=== PATIENT | female | born 1970 | race Caucasian/White ===

== ENCOUNTER 2019-10-14 06:35 | Outpatient (CLI) | payer OTHER, SELFPAY ==
[2019-10-14 07:50] LABS: Hematocrit 40.8 % (37.0-47.0); Hemoglobin 13.3 g/dL (12.0-15.0); Mean Corpuscular HGB Conc 32.6 g/dl (32-36); Mean Corpuscular Hemoglobin 29.2 pg (26-34); Mean Corpuscular Volume 89.5 fl (80-100); Mean Platelet Volume 11.1 fl (7.4-10.4); Platelet Count Result 227 k/mm3 (150-375); Red Blood Count 4.56 M/mm3 (4.2-5.4); Red Cell Distribution Width 12.8 % (11.5-14.5); White Blood Count 5.3 K/mm3 (4.5-10.0)
[2019-10-14 07:53] LABS: Hemoglobin A1C 5.6 % (<5.7)
[2019-10-14 07:59] LABS: Alanine Aminotransferase 38 U/L (4-35); Albumin Level 4.1 g/dL (3.5-5.1); Alkaline Phosphatase 47 U/L (38-126); Aspartate Amino Transferase 36 U/L (14-36); Bilirubin,Total 0.6 mg/dL (0.2-1.3); Blood Urea Nitrogen 17 mg/dL (7-17); Calcium 8.8 mg/dL (8.4-10.2); Carbon Dioxide 26 mmol/L (22-30); Chloride 103 mmol/L (98-107); Cholesterol 149 mg/dL (0-200); Estimated Glomerular Filt Rate > 60; Glucose 110 mg/dL (65-105); HDL Direct 69 mg/dL; Potassium 4.1 mmol/L (3.4-5.0); Sodium 138 mmol/L (137-145); Triglycerides 64 mg/dL (<150)
[2019-10-14 08:10] LABS: LDL Cholesterol Direct 67 mg/dL
[2019-10-14 08:32] LABS: Free T4 Free Thyroxine 0.85 ng/mL (0.78-2.19)
== END 2019-10-14 06:36 | disposition home or self-care (01) ==
PROVIDERS: PCP Internal Medicine; Visit Provider Internal Medicine
DX: E78.5 Hyperlipidemia, unspecified (principal); Z79.899 Other long term (current) drug therapy; R73.03 Prediabetes
CPT/HCPCS: 36415; 80053; 80061; 83036; 84439; 84443; 85027

== ENCOUNTER 2019-10-29 13:43 | Outpatient (CLI) | payer OTHER, SELFPAY ==
[2019-10-29 14:25] LABS: Influenza Control Positive
== END 2019-10-29 13:44 | disposition home or self-care (01) ==
PROVIDERS: PCP Internal Medicine; Visit Provider Internal Medicine
DX: R52 Pain, unspecified (principal)
CPT/HCPCS: 87804

== ENCOUNTER 2019-12-26 08:36 | Outpatient (CLI) | payer OTHER, SELFPAY ==
--- NOTE | ~2019-12-26 | XR_ITS ---
EXAMINATION: XR sacroiliac joints min 3V DATE: 12/26/2019 09:30 INDICATION: Back pain. TECHNIQUE: 3 views of the sacroiliac joints were obtained. COMPARISON: None. FINDINGS: Bone alignment is normal. No fracture. There is mild osteoarthritis of the sacroiliac joint s. No evidence of inflammatory arthropathy. IMPRESSION: 1. Mild osteoarthritis of the sacroiliac joints. Reviewed, dictated and finalized at location A.
--- NOTE | ~2019-12-26 | XR_ITS ---
EXAMINATION: XR lumbar spine 2-3V DATE: 12/26/2019 09:30 INDICATION: Back pain. TECHNIQUE: 2 views of lumbar spine were obtained. COMPARISON: Lumbar spine radiographs 07/25/2018 FINDINGS: Bone alignment is normal. Vertebral body heights and intervertebral disc heights are normal . There are endplate osteophytes at L3-L4. There is multilevel mild facet joint osteoarthritis. IMPRESSION: 1. Mild lumbar spondylosis. Reviewed, dictated and finalized at location A. IMPRESSION: 1. Mild lumbar spondylosis.
--- NOTE | ~2019-12-26 | XR_ITS ---
EXAMINATION: XR hip RT min 2V DATE: 12/26/2019 09:30 INDICATION: Right lower limb pain. TECHNIQUE: 2 views of right hip were obtained. COMPARISON: None. FINDINGS: Bone alignment is normal. No fracture. The right hip joint space is normal. IMPRESSION: 1. Normal right hip. Reviewed, dictated and finalized at location A. IMPRESSION: 1. Normal right hip.
--- NOTE | ~2019-12-26 | XR_ITS ---
EXAMINATION: XR sacrum coccyx min 2V DATE: 12/26/2019 09:30 INDICATION: Back pain. TECHNIQUE: 3 views of the sacrum and coccyx were obtained. COMPARISON: None. FINDINGS: Bone alignment is normal. L5 is a transitional segment. No fracture. There is mild osteoart hritis of the sacroiliac joints. IMPRESSION: 1. Mild osteoarthritis of the sacroiliac joints. Reviewed, dictated and finalized at location A.
== END 2019-12-26 08:37 | disposition home or self-care (01) ==
LOC: ANHIMG 08:41
PROVIDERS: PCP Internal Medicine; Visit Provider Internal Medicine
DX: M54.9 Dorsalgia, unspecified (principal); M47.898 Other spondylosis, sacral and sacrococcygeal region; M47.816 Spondylosis without myelopathy or radiculopathy, lumbar region
CPT/HCPCS: 72100; 72202; 72220; 73502

== ENCOUNTER 2020-01-02 08:24 | Outpatient (CLI) | payer OTHER, SELFPAY ==
--- NOTE | ~2020-01-02 | MR_ITS ---
EXAMINATION: MR lumbar spine wo con, MR sacroiliac jts wo con DATE: 01/02/2020 12:06 INDICATION: Dorsalgia and right hip pain TECHNIQUE: 1. Magnetic resonance imaging (MRI) of the lumbar spine was performed without intravenous contrast. S equences included sagittal T2-weighted FSE, sagittal T2-weighted FS FSE, sagittal T1-weighted FSE, an d axial T2-weighted FSE. 2. MRI of the sacral iliac joints was performed without intravenous contrast. Sequences included sagi ttal PD-weighted FS FSE, axial and coronal T1-weighted FSE and T2-weighted FS FSE and T2-weighted FSE . COMPARISON: None FINDINGS: Lumbar spine: Alignment is normal. Additional L5 segment which is sacralized on the right. Vertebral body heights a re normal. Marrow signal is normal. Mild disc desiccation and mild disc height loss at L3-L4 and L4-L 5. The conus medullaris terminates at T12. There is normal signal in the caudal spinal cord. Paravert ebral soft tissues are unremarkable. The following disc levels are specifically discussed: T12-L1: The disc does not extend beyond the endplate margin. There is mild bilateral facet joint oste oarthritis. There is no neural foraminal stenosis. There is no central canal stenosis. L1-L2: The disc does not extend beyond the endplate margin. There is mild bilateral facet joint osteo arthritis. There is no neural foraminal stenosis. There is no central canal stenosis. L2-L3: The disc does not extend beyond the endplate margin. There is mild bilateral facet joint osteo arthritis. There is no neural foraminal stenosis. There is no central canal stenosis. L3-L4: Disc is mildly bulging. There is mild right and mild to moderate left facet joint osteoarthrit is. There is mild bilateral neural foraminal stenosis. There is negligible central canal stenosis. L4-L5: Disc is bulging with superimposed right foraminal zone annular fissure. There is hypertrophy o f the ligamentum flavum. There is moderate bilateral facet joint osteoarthritis. There is mild bilat eral neural foraminal stenosis. There is mild central canal stenosis. L5-S1: The disc does not extend beyond the endplate margin. There is mild bilateral facet joint osteo arthritis. There is no neural foraminal stenosis. There is no central canal stenosis. Sacrum/sacroiliac joints: Alignment is normal. There is mild edema along the surgical site of the pseudoarticulation between th e partially sacralized right transverse process of L5 and the sacrum. Small T1 and T2 hyperintense he mangioma at the left sacral ala at the level of S1. Mild left and minimal right sacroiliac osteoarthr itis. Small region of mild subarticular edema at the sacral side of the anterior margin of the left s acroiliac joint. No erosions, joint effusion or increased signal along the joint line to suggest an i nflammatory sacroiliitis. Small bone island at the left innominate bone at the inferior margin of the posterior iliac spine. Bone marrow signal is otherwise normal. No fracture. 5.0 cm homogeneously T2 hyperintense left adnexal cyst with single curvilinear nearly indiscernible internal septation. No ev ident soft tissue component to suggest neoplasm. 1.2 cm right adnexal cyst. Bladder and anteverted ut erus are normal. No pathologically enlarged pelvic or inguinal lymphadenopathy. Small amount of likel y physiologic free fluid in the cul-de-sac. IMPRESSION: 1. Mild lumbar spondylosis with developmental transitional L5 segment which is partially sacralized o n the right. 2. Mild left and minimal right sacroiliac osteoarthritis. No findings to suggest an inflammatory sacr oiliitis. Reviewed, dictated and finalized at location A.
== END 2020-01-02 08:25 | disposition home or self-care (01) ==
LOC: ANHIMG 08:26
PROVIDERS: PCP Internal Medicine; Visit Provider Internal Medicine
DX: M25.551 Pain in right hip (principal); M54.9 Dorsalgia, unspecified; M47.816 Spondylosis without myelopathy or radiculopathy, lumbar region; M47.898 Other spondylosis, sacral and sacrococcygeal region
CPT/HCPCS: 72148; 72197

== ENCOUNTER 2020-01-14 13:02 | Outpatient (CLI) | payer OTHER, SELFPAY ==
--- NOTE | ~2020-01-14 | MR_ITS ---
EXAMINATION: MR hip RT wo/w con DATE: 01/14/2020 14:27 INDICATION: Right hip pain TECHNIQUE: Magnetic resonance imaging (MRI) of the right hip was performed without and with 14 mL Mu ltihance intravenous contrast. Sequences included full-field axial PD-weighted FS FSE and T1-weighted FSE, coronal of the pelvis with PD-weighted FS FSE, small field of view of the right hip with axial PD-weighted FS FSE, axial T1-weighted FS FSE, sagittal PD-weighted FS FSE and coronal PD weighted FS FSE. Additional radial T1-weighted FGR oriented orthogonal to the acetabular rim were obtained for e valuation of the labrum. Postcontrast axial and coronal T1-weighted FS FSE images were also obtained. COMPARISON: None FINDINGS: Bones/labrum/cartilage: Alignment is normal. No fracture, avascular necrosis or pathologic marrow replacing process. Mild os teoarthritis at the right hip with mild posterior predominant nonuniform joint space narrowing. There is a tear of the anterosuperior right acetabular labrum. Fluid: Symmetric physiologic amount of fluid within both hip joints. Soft tissues: Normal and symmetric muscle bulk and signal in the pelvis and visualized proximal thighs. The iliopso as, gluteal and proximal hamstring tendons are normal. 5.6 cm left adnexal cyst. Limited evaluation o f visceral organs of the pelvis is otherwise unremarkable. No pathologically enlarged pelvic/inguina l lymphadenopathy. No abnormally enhancing lesions identified. IMPRESSION: 1. Mild right hip osteoarthritis with anterosuperior labral tear. 2. 5.6 cm left adnexal cyst. Reviewed, dictated and finalized at location A.
[2020-01-14 13:27] LABS: Estimated Glomerular Filt Rate > 60
== END 2020-01-14 13:03 | disposition home or self-care (01) ==
PROVIDERS: PCP Internal Medicine; Visit Provider Internal Medicine
DX: M25.551 Pain in right hip (principal); M16.11 Unilateral primary osteoarthritis, right hip; S73.191A Other sprain of right hip, initial encounter; K66.8 Other specified disorders of peritoneum
CPT/HCPCS: 36415; 73723; A9577

== ENCOUNTER 2020-01-17 12:26 | Outpatient (CLI) | payer OTHER, SELFPAY ==
--- NOTE | ~2020-01-17 | XR_ITS ---
EXAMINATION: XR lg joint inject/asp w image DATE: 01/17/2020 13:27 INDICATION: Right hip pain TECHNIQUE: A time-out was performed to verify the patient's name, date of , and procedure to b e performed. The procedure including the risks, benefits, and alternatives was discussed with the pat ient. Risks discussed included bleeding and infection. The patient understood the risks and agreed to proceed. The skin overlying the right hip joint was prepped and draped in usual sterile fashion. A nesthetic was administered with 1% lidocaine subcutaneously. A 22 G needle was advanced under fluoro scopic guidance into the joint. Injection of 0.6 mL of Omnipaque 240 confirmed intra-articular posit ion of the needle. Subsequently, injectate consisting of 6 mL of a 4:2 mixture of 1% lidocaine: 10 m g/mL Kenalog for a total dosage of 20 mg Kenalog was instilled. Washout of contrast was seen confirmi ng intra-articular administration. The needle was removed and the entry site was cleaned and dressed. There were no immediate complications. Fluoroscopy exposure time was 0.1 minutes. The total number of images was 1. FINDINGS: Real-time fluoroscopy demonstrates the needle in the right hip joint. Patient's pain prior to procedure:/. Patient's pain following the procedure: 2/10. IMPRESSION: 1. Right hip injection of local anesthetic and steroid with decrease in the patient's presenting pain . Reviewed, dictated and finalized at location A. IMPRESSION: 1. Right hip injection of local anesthetic and steroid with decrease in the pat ient's presenting pain.
== END 2020-01-17 12:27 | disposition home or self-care (01) ==
PROVIDERS: PCP Internal Medicine; Visit Provider Orthopaedic Surgery
DX: M25.551 Pain in right hip (principal)
CPT/HCPCS: 20610; 77002; Q9966

== ENCOUNTER 2020-01-31 12:32 | Outpatient (CLI) | payer OTHER, SELFPAY ==
[2020-01-31 13:44] LABS: Blood Urea Nitrogen 17 mg/dL (7-17); Carbon Dioxide 24 mmol/L (22-30); Chloride 105 mmol/L (98-107); Estimated Glomerular Filt Rate > 60; Glucose 106 mg/dL (65-105); Potassium 3.9 mmol/L (3.4-5.0); Sodium 138 mmol/L (137-145)
[2020-01-31 16:08] LABS: Folic Acid 10.7 ng/mL (2.76->20)
[2020-02-04 11:11] LABS: Vitamin B6 13.4 ng/mL (2.1-21.7)
[2020-02-06 10:17] LABS: Vitamin B1 12 nmol/L (8-30)
== END 2020-01-31 12:33 | disposition home or self-care (01) ==
PROVIDERS: PCP Internal Medicine; Visit Provider Internal Medicine
DX: K14.6 Glossodynia (principal); R73.03 Prediabetes; R53.83 Other fatigue
CPT/HCPCS: 36415; 80048; 82607; 82746; 83036; 84207; 84425; 84443

== ENCOUNTER 2020-03-05 15:25 | Outpatient (CLI) | payer OTHER, SELFPAY ==
--- NOTE | ~2020-03-05 | US_ITS ---
EXAMINATION: US pelvic complete w TV DATE: 03/05/2020 16:21 INDICATION: Left adnexal cyst Comparison:No prior studies for comparison. TECHNIQUE: Multiple transabdominal and endovaginal sonographic images of the pelvis performed. FINDINGS: The uterus measures 9.3 x 5.4 x 5.5 cm. There is a hypoechoic vascular structure in the radha metrium adjacent to the endometrium measuring 2.4 x 2 x 1.8 cm, compatible with uterine fibroid. The endometrial complex measures 7 mm. The right ovary not visualized. Left ovary contains a 4.9 x 4.2 x 3.6 cm simple cyst. There is no reema e fluid in the pelvis. There are no abnormal masses seen on either side. IMPRESSION: 1. 4.9 cm simple cyst of the left ovary. 2: Hypoechoic vascular mass of the uterine myometrium measuring up to 2.4 cm, compatible with uterine fibroid. Reviewed, dictated and finalized at location A. IMPRESSION: 1. 4.9 cm simple cyst of the left ovary. 2: Hypoechoic vascular mass of the uterine myometrium measuring up to 2.4 cm, c ompatible with uterine fibroid.
== END 2020-03-05 15:26 | disposition home or self-care (01) ==
PROVIDERS: PCP Internal Medicine; Visit Provider Obstetrics & Gynecology
DX: D35.02 Benign neoplasm of left adrenal gland (principal)
CPT/HCPCS: 76830; 76856

== ENCOUNTER 2020-05-21 12:17 | Outpatient (CLI) | payer OTHER, SELFPAY ==
--- NOTE | ~2020-05-21 | CT_ITS ---
EXAMINATION: CT abdomen pelvis w con DATE: 05/21/2020 12:48 INDICATION: Diverticulitis of intestine. TECHNIQUE: Computed tomography (CT) of the abdomen and pelvis was performed with 100 mL Omnipaque 350 intravenous contrast. Automated exposure control and iterative reconstruction technique were employe d. The dose-length product was 418.75 mGy-cm. COMPARISON: Pelvis ultrasound 03/15/2020, right hip MRI 01/14/2020 FINDINGS: The visualized portions of the lung bases demonstrate minimal atelectasis. No pleural effus ion. The heart size is normal. No pericardial effusion. There are bilateral breast implants. There is a 6 mm cyst in the liver. There is a 3.9 cm mass in left hepatic lobe with interrupted peripheral pu ddling of contrast, consistent with a hemangioma. The gallbladder, spleen, pancreas, adrenal glands, and kidneys are normal. There are no dilated loops of bowel. The appendix is normal. There is a small umbilical hernia containing fat. There is a 4.8 cm cyst in left ovary. There are no pathologically e nlarged lymph nodes. There is no free intraperitoneal fluid. There is a 2.2 cm submucosal fibroid in the uterus. There is mild lumbar spondylosis. IMPRESSION: 1. Stable 4.8 cm cyst in left ovary, likely benign. 2. Uterine fibroid. Reviewed, dictated and finalized at location A.
== END 2020-05-21 12:18 | disposition home or self-care (01) ==
LOC: ANHIMG 12:18
PROVIDERS: PCP Internal Medicine; Visit Provider Internal Medicine
DX: K57.92 Diverticulitis of intestine, part unspecified, without perforation or abscess without bleeding (principal); R10.9 Unspecified abdominal pain; N83.202 Unspecified ovarian cyst, left side; D25.9 Leiomyoma of uterus, unspecified
CPT/HCPCS: 74177; Q9967

== ENCOUNTER 2020-07-10 07:23 | Outpatient (CLI) | payer OTHER, SELFPAY ==
[2020-07-10 07:59] LABS: Basophils Percent Auto 0.5 % (0.2-1.2); Eosinophils Absolute Auto 0.2 K/mm3 (0-0.3); Eosinophils Percent Auto 2.4 % (0-4.4); Hematocrit 41.4 % (37.0-47.0); Hemoglobin 13.8 g/dL (12.0-15.0); Immature Granulocyte Absolute 0.01 K/mm3 (0.00-0.031); Immature Granulocyte Percent A 0.2 % (0-0.5); Lymphocytes Absolute Auto 1.53 K/mm3 (0.9-3.2); Lymphocytes Percent Auto 24.9 % (18.3-44.2); Mean Corpuscular HGB Conc 33.3 g/dl (32-36); Mean Corpuscular Hemoglobin 29.2 pg (26-34); Mean Corpuscular Volume 87.5 fl (80-100); Mean Platelet Volume 10.3 fl (7.4-10.4); Monocytes Absolute Auto 0.4 K/mm3 (0.1-0.6); Monocytes Percent Auto 6.7 % (2.6-8.5); Neutrophils Percent Auto 65.3 % (45.5-73.1); Platelet Count Result 231 k/mm3 (150-375); Red Blood Count 4.73 M/mm3 (4.2-5.4); Red Cell Distribution Width 12.2 % (11.5-14.5); White Blood Count 6.1 K/mm3 (4.5-10.0)
[2020-07-10 08:10] LABS: Hemoglobin A1C 5.4 % (<5.7)
[2020-07-10 08:15] LABS: Alanine Aminotransferase 78 U/L (4-35); Albumin Level 4.4 g/dL (3.5-5.1); Alkaline Phosphatase 110 U/L (38-126); Anion Gap 7 mmol/L (8-16); Aspartate Amino Transferase 79 U/L (14-36); Bilirubin,Total 0.5 mg/dL (0.2-1.3); Blood Urea Nitrogen 17 mg/dL (7-17); Calcium 8.9 mg/dL (8.4-10.2); Carbon Dioxide 30 mmol/L (22-30); Chloride 103 mmol/L (98-107); Cholesterol 161 mg/dL (0-200); Estimated Glomerular Filt Rate > 60; Glucose 90 mg/dL (65-105); HDL Direct 48 mg/dL; Potassium 4.1 mmol/L (3.4-5.0); Sodium 140 mmol/L (137-145); Triglycerides 134 mg/dL (<150)
[2020-07-10 08:26] LABS: LDL Cholesterol Direct 71 mg/dL
[2020-07-10 08:48] LABS: Free T4 Free Thyroxine 0.98 ng/mL (0.78-2.19); Vitamin D 25 Hydroxy 39.1 ng/mL
== END 2020-07-10 07:24 | disposition home or self-care (01) ==
LOC: ANHLAB 07:27
PROVIDERS: PCP Internal Medicine; Visit Provider Internal Medicine
DX: E78.5 Hyperlipidemia, unspecified (principal); E55.9 Vitamin D deficiency, unspecified; Z79.899 Other long term (current) drug therapy
CPT/HCPCS: 36415; 80053; 80061; 82306; 83036; 84439; 84443; 85025

== ENCOUNTER 2020-09-23 08:27 | Outpatient (CLI) | payer OTHER, SELFPAY ==
--- NOTE | ~2020-09-23 | MM_ITS ---
EXAMINATION: MM scrn herlinda implant BI w nakul HISTORY: Screening mammogram TECHNIQUE: Craniocaudal and mediolateral oblique 3-D tomosynthesis images with implant displacement a nd synthetic 2-D images were generated. Craniocaudal and mediolateral oblique views of the breasts wi thout implant displacement were obtained using full field digital mammography. CAD analysis was submi tted and interpreted. COMPARISON: Comparison to multiple prior studies sequentially, with oldest reviewed study dated 09/16. BREAST PARENCHYMAL COMPOSITION: The breasts are extremely dense, which lowers the sensitivity of mamm ography. FINDINGS: There are subpectoral breast implants. There is no evidence of suspicious mass, calcificati on, or architectural distortion to suggest malignancy in either breast. There has been no suspicious interval change. IMPRESSION: 1. No mammographic evidence of malignancy. 2. Recommend routine screening mammography in one year. BI-RADS Category 1: Negative Reviewed, dictated and finalized at location A. 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
== END 2020-09-23 08:28 | disposition home or self-care (01) ==
LOC: ANHIMG 08:28
PROVIDERS: Family Provider Internal Medicine; PCP Internal Medicine; Visit Provider Internal Medicine
DX: Z12.31 Encounter for screening mammogram for malignant neoplasm of breast (principal)
CPT/HCPCS: 77063; 77067

== ENCOUNTER 2021-02-03 06:45 | Outpatient (CLI) | payer OTHER, SELFPAY ==
[2021-02-03 07:52] LABS: Alanine Aminotransferase 27 U/L (4-35); Albumin Level 4.4 g/dL (3.5-5.1); Alkaline Phosphatase 60 U/L (38-126); Anion Gap 10 mmol/L (8-16); Aspartate Amino Transferase 34 U/L (14-36); Bilirubin,Total 0.4 mg/dL (0.2-1.3); Blood Urea Nitrogen 18 mg/dL (7-17); Calcium 9.5 mg/dL (8.4-10.2); Carbon Dioxide 24 mmol/L (22-30); Chloride 105 mmol/L (98-107); Cholesterol 273 mg/dL (0-200); Estimated Glomerular Filt Rate > 60; Glucose 99 mg/dL (65-105); HDL Direct 87 mg/dL; Potassium 4.4 mmol/L (3.4-5.0); Sodium 139 mmol/L (137-145); Triglycerides 70 mg/dL (<150)
[2021-02-03 08:00] LABS: Basophils Absolute Auto 0.1 K/mm3 (0.0-0.1); Basophils Percent Auto 1.4 % (0.2-1.2); Eosinophils Absolute Auto 0.3 K/mm3 (0-0.3); Hematocrit 41.8 % (37.0-47.0); Hemoglobin 13.9 g/dL (12.0-15.0); Immature Granulocyte Absolute 0.01 K/mm3 (0.00-0.031); Immature Granulocyte Percent A 0.2 % (0-0.5); Lymphocytes Absolute Auto 1.44 K/mm3 (0.9-3.2); Lymphocytes Percent Auto 27.8 % (18.3-44.2); Mean Corpuscular HGB Conc 33.3 g/dl (32-36); Mean Corpuscular Hemoglobin 29.5 pg (26-34); Mean Corpuscular Volume 88.7 fl (80-100); Mean Platelet Volume 10.4 fl (7.4-10.4); Monocytes Absolute Auto 0.4 K/mm3 (0.1-0.6); Monocytes Percent Auto 7.9 % (2.6-8.5); Neutrophils Percent Auto 57.7 % (45.5-73.1); Platelet Count Result 247 k/mm3 (150-375); Red Blood Count 4.71 M/mm3 (4.2-5.4); Red Cell Distribution Width 12.7 % (11.5-14.5); White Blood Count 5.2 K/mm3 (4.5-10.0)
[2021-02-03 08:02] LABS: LDL Cholesterol Direct 126 mg/dL
[2021-02-03 08:10] LABS: Hemoglobin A1C 5.4 % (<5.7)
[2021-02-03 09:01] LABS: Free T4 Free Thyroxine 0.87 ng/mL (0.78-2.19)
[2021-02-07 11:19] LABS: Vitamin D 1,25 (OH)2 Total 34 pg/mL (18-72); Vitamin D2 1,25 (OH)2 <8 pg/mL; Vitamin D3 1,25 (OH)2 34 pg/mL
== END 2021-02-03 06:46 | disposition home or self-care (01) ==
PROVIDERS: PCP Internal Medicine; Visit Provider Internal Medicine
DX: E55.9 Vitamin D deficiency, unspecified (principal); E78.5 Hyperlipidemia, unspecified; Z79.899 Other long term (current) drug therapy
CPT/HCPCS: 36415; 80053; 80061; 82652; 83036; 84439; 84443; 85025

== ENCOUNTER 2021-02-24 12:08 | Outpatient (CLI) | payer OTHER, SELFPAY ==
[2021-02-24 13:03] LABS: Hematocrit 45.5 % (37.0-47.0); Mean Corpuscular Hemoglobin 29.6 pg (26-34); Mean Corpuscular Volume 89.7 fl (80-100); Mean Platelet Volume 10.1 fl (7.4-10.4); Platelet Count Result 201 k/mm3 (150-375); Red Blood Count 5.07 M/mm3 (4.2-5.4); Red Cell Distribution Width 12.8 % (11.5-14.5); White Blood Count 7.6 K/mm3 (4.5-10.0)
[2021-02-24 13:17] LABS: Monoscreen Negative (Negative)
[2021-02-24 13:18] LABS: Negative Monotest Control Negative (Negative); Positive Monotest Control Positive (Positive)
[2021-02-24 13:25] LABS: Influenza Control Positive
[2021-02-24 13:35] LABS: Alanine Aminotransferase 31 U/L (4-35); Albumin Level 4.5 g/dL (3.5-5.1); Alkaline Phosphatase 58 U/L (38-126); Anion Gap 11 mmol/L (8-16); Aspartate Amino Transferase 36 U/L (14-36); Bilirubin,Total 0.7 mg/dL (0.2-1.3); Blood Urea Nitrogen 13 mg/dL (7-17); Carbon Dioxide 27 mmol/L (22-30); Chloride 102 mmol/L (98-107); Estimated Glomerular Filt Rate > 60; Glucose 95 mg/dL (65-105); Potassium 3.7 mmol/L (3.4-5.0); Sodium 140 mmol/L (137-145)
[2021-02-24 13:38] LABS: Add Urine Microscopic? YES; Appearance Urine Clear (Clear); Bilirubin Urine Negative (Negative); Blood Urine 1+ (Negative); Color Urine Amber (Yellow); Glucose Urine UA Negative (Negative); Ketones Urine Trace mg/dL (Negative); Leukocyte Esterase Ur Negative LEU/UL (Negative); Mucus Urine Heavy /lpf; Nitrate Urine Negative (Negative); Protein Urine 1+ mg/dL (Negative); Squamous Epithelial Cell Urine Rare /hpf (Few); WBC Urine 0-3 /hpf
[2021-02-24 13:50] LABS: Band Neutrophils Percent 23 % (0-6); Lymphocytes Absolute Manual 0.83 K/mm3 (1.1-4.5); Metamyelocytes Percent 2 %; Monocytes Absolute Manual 0.15 K/mm3 (0.1-0.90); Monocytes Percent Manual 2 % (3-9); Neutrophils Absolute Manual 6.46 K/mm3 (1.7-7.2); Neutrophils Percent Manual 62 % (46-73); Platelet Estimate Adequate (Adequate); Total Cells Counted 100
[2021-02-24 13:51] LABS: Erythrocyte Sedimentation Rate 18 mm/hr (0-20)
[2021-02-24 14:36] LABS: CRP 15.3 mg/dL (<1.0)
== END 2021-02-24 12:09 | disposition home or self-care (01) ==
PROVIDERS: PCP Internal Medicine; Visit Provider Internal Medicine
DX: R50.9 Fever, unspecified (principal); R11.0 Nausea; R52 Pain, unspecified
CPT/HCPCS: 80053; 81001; 85025; 85652; 86140; 86308; 87040; 87804

== ENCOUNTER 2021-09-01 11:08 | Outpatient (CLI) | payer OTHER, SELFPAY ==
[2021-09-01 11:58] LABS: Basophils Absolute Auto 0.1 K/mm3 (0.0-0.1); Basophils Percent Auto 1.3 % (0.2-1.2); Eosinophils Absolute Auto 0.2 K/mm3 (0-0.3); Eosinophils Percent Auto 3.8 % (0-4.4); Hematocrit 40.6 % (37.0-47.0); Hemoglobin 13.7 g/dL (12.0-15.0); Immature Granulocyte Absolute 0.02 K/mm3 (0.00-0.031); Immature Granulocyte Percent A 0.4 % (0-0.5); Lymphocytes Absolute Auto 1.81 K/mm3 (0.9-3.2); Lymphocytes Percent Auto 32.5 % (18.3-44.2); Mean Corpuscular HGB Conc 33.7 g/dl (32-36); Mean Corpuscular Hemoglobin 29.7 pg (26-34); Mean Corpuscular Volume 88.1 fl (80-100); Mean Platelet Volume 10.7 fl (7.4-10.4); Monocytes Absolute Auto 0.4 K/mm3 (0.1-0.6); Monocytes Percent Auto 7.2 % (2.6-8.5); Neutrophils Absolute Auto 3.1 K/mm3 (1.3-6.7); Neutrophils Percent Auto 54.8 % (45.5-73.1); Platelet Count Result 314 k/mm3 (150-375); Red Blood Count 4.61 M/mm3 (4.2-5.4); Red Cell Distribution Width 12.5 % (11.5-14.5); White Blood Count 5.6 K/mm3 (4.5-10.0)
[2021-09-01 12:17] LABS: Alanine Aminotransferase 23 U/L (4-35); Albumin Level 4.8 g/dL (3.5-5.1); Alkaline Phosphatase 54 U/L (38-126); Anion Gap 10 mmol/L (8-16); Aspartate Amino Transferase 32 U/L (14-36); Bilirubin,Total 0.6 mg/dL (0.2-1.3); Blood Urea Nitrogen 21 mg/dL (7-17); Calcium 9.5 mg/dL (8.4-10.2); Carbon Dioxide 28 mmol/L (22-30); Chloride 99 mmol/L (98-107); Cholesterol 187 mg/dL (0-200); Estimated Glomerular Filt Rate > 60; Glucose 88 mg/dL (65-110); HDL Direct 104 mg/dL; Potassium 4.3 mmol/L (3.4-5.0); Sodium 137 mmol/L (137-145); Triglycerides 54 mg/dL (<150)
[2021-09-01 12:23] LABS: Add Urine Microscopic? NO; Appearance Urine Clear (Clear); Bilirubin Urine Negative (Negative); Blood Urine Negative (Negative); Color Urine Yellow (Yellow); Glucose Urine UA Negative (Negative); Ketones Urine Negative (Negative); Leukocyte Esterase Ur Negative LEU/UL (Negative); Nitrate Urine Negative (Negative); Protein Urine Negative (Negative); Specific Grav Ur 1.012 (1.001-1.035); Urobilinogen Urine Negative mg/dL (<2.0)
[2021-09-01 12:27] LABS: Hemoglobin A1C 5.5 % (<5.7)
[2021-09-01 12:28] LABS: LDL Cholesterol Direct 62 mg/dL
[2021-09-01 12:44] LABS: Free T4 Free Thyroxine 1.09 ng/mL (0.78-2.19); Vitamin D 25 Hydroxy 36.8 ng/mL
[2021-09-04 09:28] LABS: Apolipoprotein B 62 mg/dL (<90)
== END 2021-09-01 11:09 | disposition home or self-care (01) ==
LOC: ANHLAB 11:10
PROVIDERS: PCP Internal Medicine; Visit Provider Internal Medicine
DX: E78.5 Hyperlipidemia, unspecified (principal); E55.9 Vitamin D deficiency, unspecified; Z79.899 Other long term (current) drug therapy
CPT/HCPCS: 36415; 80053; 80061; 81003; 82172; 82306; 83036; 83525; 84439; 84443; 85025

== ENCOUNTER 2021-11-30 07:12 | Outpatient (CLI) | payer OTHER, SELFPAY | END 2021-11-30 07:13 | disposition home or self-care (01) | PROVIDERS: PCP Internal Medicine; Visit Provider Internal Medicine | DX: I49.8 Other specified cardiac arrhythmias (principal); Z51.81 Encounter for therapeutic drug level monitoring; Z79.899 Other long term (current) drug therapy | CPT/HCPCS: 36415; 83735 ==

== ENCOUNTER 2021-12-08 10:19 | Outpatient (CLI) | payer OTHER, SELFPAY ==
--- NOTE | 2021-12-08 | EST_ITS ---
Patient Info Name: Gloria Meyers Age: 51 years : 1970 Gender: Female Ht: 69 in Wt: 160 lbs BSA: 1.88 m2 HR: 83 bpm BP: 124 / 80 mmHg Exam Date: 12/08/2021 10:47 AM Exam Location: [facility] Patient Status: Outpatient Admit Date: 12/08/2021 Staff Ordering Physician: Fuentes Bridges MD Build Technician: Anyi Daugherty RDCS Attending Provider: Fuentes Bridges MD Exercise Technologist: Shi Avitia CT Exercise Physician: Fuentes Bridges MD Exam Type: CA stress echo Study Info Indications R00.2 - Palpitations Treadmill exercise stress echocardiogram is performed. Summary 1. Negative stress echocardiogram for ischemia by wall motion analysis. 2. Stress echocardiogram is normal. 3. Non diagnostic ST/T wave changes with exercise. 4. Good exercise capacity for age. 5. No exercise-induced chest pain. Stress Echo Findings Left Ventricle Normal left venticular systolic function with no regional wall motion abnormalities noted at rest. Overall global left ventricular systolic function Improved post stress. No regional wall motion abnormalities noted post stress. Normal augmentation of all wall segments without evidence of ischemia with stress. Protocol: Robbie Stress ECG Details Stage: REST Duration (min): 0 min : 54 sec Speed (mph): 0.0 Grade (%): 0 HR (bpm): 85 SBP (mmHg): 124 DBP (mmHg): 80 METS: --- Stage: REST Duration (min): 19 min : 48 sec Speed (mph): 0.0 Grade (%): 0 HR (bpm): 83 SBP (mmHg): 124 DBP (mmHg): 80 METS: --- Stage: STAGE 1 Duration (min): 1 min : 0 sec Speed (mph): 1.7 Grade (%): 10 HR (bpm): 100 SBP (mmHg): 124 DBP (mmHg): 80 METS: --- Stage: STAGE 1 Duration (min): 2 min : 0 sec Speed (mph): 1.7 Grade (%): 10 HR (bpm): 102 SBP (mmHg): 124 DBP (mmHg): 80 METS: --- Stage: STAGE 1 Duration (min): 3 min : 0 sec Speed (mph): 1.7 Grade (%): 10 HR (bpm): 103 SBP (mmHg): 124 DBP (mmHg): 80 METS: --- Stage: STAGE 2 Duration (min): 1 min : 0 sec Speed (mph): 2.5 Grade (%): 12 HR (bpm): 110 SBP (mmHg): 155 DBP (mmHg): 78 METS: --- Stage: STAGE 2 Duration (min): 2 min : 0 sec Speed (mph): 2.5 Grade (%): 12 HR (bpm): 112 SBP (mmHg): 152 DBP (mmHg): 75 METS: --- Stage: STAGE 2 Duration (min): 3 min : 0 sec Speed (mph): 2.5 Grade (%): 12 HR (bpm): 117 SBP (mmHg): 152 DBP (mmHg): 75 METS: --- Stage: STAGE 3 Duration (min): 1 min : 0 sec Speed (mph): 3.4 Grade (%): 14 HR (bpm): 130 SBP (mmHg): 172 DBP (mmHg): 80 METS: --- Stage: STAGE 3 Duration (min): 2 min : 0 sec Speed (mph): 3.4 Grade (%): 14 HR (bpm): --- SBP (mmHg): 172 DBP (mmHg): 80 METS: --- Stage: STAGE 3 Duration (min): 3 min : 0 sec Speed (mph): 3.4 Grade (%): 14 HR (bpm): --- SBP (mmHg): 166 D
== END 2021-12-08 10:20 | disposition home or self-care (01) ==
LOC: ANHCARD 10:20
PROVIDERS: PCP Internal Medicine; Visit Provider Internal Medicine Cardiovascular Disease
DX: R00.2 Palpitations (principal); Z82.49 Family history of ischemic heart disease and other diseases of the circulatory system; R73.03 Prediabetes; I48.0 Paroxysmal atrial fibrillation
CPT/HCPCS: 93351

== ENCOUNTER 2022-01-19 08:08 | Outpatient (CLI) | payer OTHER, SELFPAY ==
--- NOTE | ~2022-01-19 | MM_ITS ---
EXAMINATION: MM scrn herlinda implant BI w nakul HISTORY: Screening mammogram TECHNIQUE: Craniocaudal and mediolateral oblique 3-D tomosynthesis images with implant displacement a nd synthetic 2-D images were generated. Craniocaudal and mediolateral oblique views of the breasts wi thout implant displacement were obtained using full field digital mammography. CAD analysis was submi tted and interpreted. COMPARISON: 09/23/2020, 04/10/2019, 05/24/2017 bilateral implant screening mammogram examinations BREAST PARENCHYMAL COMPOSITION: The breasts are heterogeneously dense, which may obscure small masses . FINDINGS: There is no evidence of suspicious mass, calcification, or architectural distortion to sugg est malignancy in either breast. There has been no suspicious interval change. IMPRESSION: 1. No mammographic evidence of malignancy. 2. Recommend routine screening mammography in one year. BI-RADS Category 1: Negative Reviewed, dictated and finalized at location A.
== END 2022-01-19 08:09 | disposition home or self-care (01) ==
LOC: ANHIMG 08:10
PROVIDERS: PCP Internal Medicine; Visit Provider Internal Medicine
DX: Z12.31 Encounter for screening mammogram for malignant neoplasm of breast (principal)
CPT/HCPCS: 77063; 77067

== ENCOUNTER 2022-03-04 07:23 | Outpatient (CLI) | payer OTHER, SELFPAY ==
[2022-03-04 08:01] LABS: Hemoglobin A1C 5.4 % (<5.7)
[2022-03-04 08:07] LABS: Alanine Aminotransferase 21 U/L (6-35); Albumin Level 4.5 g/dL (3.5-5.1); Alkaline Phosphatase 54 U/L (38-126); Anion Gap 5 mmol/L (8-16); Aspartate Amino Transferase 34 U/L (14-36); Bilirubin,Total 0.6 mg/dL (0.2-1.3); Blood Urea Nitrogen 18 mg/dL (7-17); Calcium 8.8 mg/dL (8.4-10.2); Carbon Dioxide 29 mmol/L (22-30); Chloride 105 mmol/L (98-107); Cholesterol 210 mg/dL (0-200); Estimated Glomerular Filt Rate > 60; Glucose 93 mg/dL (65-110); HDL Direct 86 mg/dL; Potassium 4.3 mmol/L (3.4-5.0); Sodium 139 mmol/L (137-145); Triglycerides 71 mg/dL (<150)
[2022-03-04 08:22] LABS: LDL Cholesterol Direct 86 mg/dL
[2022-03-04 15:08] LABS: Vitamin D 25 Hydroxy 41.7 ng/mL
== END 2022-03-04 07:24 | disposition home or self-care (01) ==
LOC: ANHLAB 07:24
PROVIDERS: PCP Internal Medicine; Visit Provider Internal Medicine
DX: E78.5 Hyperlipidemia, unspecified (principal); Z79.899 Other long term (current) drug therapy; E55.9 Vitamin D deficiency, unspecified
CPT/HCPCS: 36415; 80053; 80061; 82306; 83036; 84439; 84443

== ENCOUNTER 2022-10-17 06:54 | Outpatient (CLI) | payer OTHER, SELFPAY ==
[2022-10-17 07:24] LABS: Basophils Absolute Auto 0.1 K/mm3 (0.0-0.1); Basophils Percent Auto 1.5 % (0.2-1.2); Eosinophils Absolute Auto 0.5 K/mm3 (0-0.3); Eosinophils Percent Auto 9.5 % (0-4.4); Hematocrit 38.4 % (37.0-47.0); Hemoglobin 12.9 g/dL (12.0-15.0); Immature Granulocyte Absolute 0.02 K/mm3 (0.00-0.031); Immature Granulocyte Percent A 0.4 % (0-0.5); Lymphocytes Absolute Auto 1.67 K/mm3 (0.9-3.2); Lymphocytes Percent Auto 30.6 % (18.3-44.2); Mean Corpuscular HGB Conc 33.6 g/dl (32-36); Mean Corpuscular Hemoglobin 28.9 pg (26-34); Mean Corpuscular Volume 85.9 fl (80-100); Mean Platelet Volume 10.3 fl (7.4-10.4); Monocytes Absolute Auto 0.4 K/mm3 (0.1-0.6); Monocytes Percent Auto 6.4 % (2.6-8.5); Neutrophils Absolute Auto 2.8 K/mm3 (1.3-6.7); Neutrophils Percent Auto 51.6 % (45.5-73.1); Platelet Count Result 299 k/mm3 (150-375); Red Blood Count 4.47 M/mm3 (4.2-5.4); Red Cell Distribution Width 12.9 % (11.5-14.5); White Blood Count 5.5 K/mm3 (4.5-10.0)
[2022-10-17 07:36] LABS: Alanine Aminotransferase 18 U/L (6-35); Albumin Level 4.4 g/dL (3.5-5.1); Alkaline Phosphatase 48 U/L (38-126); Anion Gap 4 mmol/L (8-16); Aspartate Amino Transferase 30 U/L (14-36); Bilirubin,Total 0.5 mg/dL (0.2-1.3); Blood Urea Nitrogen 21 mg/dL (7-17); CRP < 0.5 mg/dL (<1.0); Calcium 8.6 mg/dL (8.4-10.2); Carbon Dioxide 28 mmol/L (22-30); Chloride 103 mmol/L (98-107); Cholesterol 147 mg/dL (0-200); Creatine Kinase 132 U/L (30-135); Estimated Glomerular Filt Rate > 60; Glucose 92 mg/dL (65-110); HDL Direct 80 mg/dL; Potassium 4.3 mmol/L (3.4-5.0); Sodium 135 mmol/L (137-145); Triglycerides 55 mg/dL (<150)
[2022-10-17 07:42] LABS: Hemoglobin A1C 5.3 % (<5.7)
[2022-10-17 07:45] LABS: LDL Cholesterol Direct 42 mg/dL
[2022-10-17 07:56] LABS: Vitamin D 25 Hydroxy 33.5 ng/mL
[2022-10-17 07:57] LABS: Erythrocyte Sedimentation Rate 11 mm/hr (0-20)
[2022-10-20 11:43] LABS: Aldolase 5.2 U/L (<=8.1)
== END 2022-10-17 06:55 | disposition home or self-care (01) ==
PROVIDERS: PCP Internal Medicine; Visit Provider Internal Medicine
DX: E55.9 Vitamin D deficiency, unspecified (principal); Z79.899 Other long term (current) drug therapy; E78.5 Hyperlipidemia, unspecified; M54.9 Dorsalgia, unspecified; I49.8 Other specified cardiac arrhythmias; R53.83 Other fatigue
CPT/HCPCS: 36415; 80053; 80061; 82085; 82306; 82550; 83036; 84439; 84443; 85025; 85652; 86140

== ENCOUNTER 2023-07-03 15:23 | Outpatient (CLI) | payer OTHER, SELFPAY ==
[2023-07-03 17:03] LABS: Basophils Absolute Auto 0.1 K/mm3 (0.0-0.1); Eosinophils Absolute Auto 0.3 K/mm3 (0-0.3); Eosinophils Percent Auto 5.4 % (0-4.4); Hematocrit 38.1 % (37.0-47.0); Hemoglobin 12.2 g/dL (12.0-15.0); Immature Granulocyte Absolute 0.02 K/mm3 (0.00-0.031); Immature Granulocyte Percent A 0.3 % (0-0.5); Lymphocytes Absolute Auto 1.85 K/mm3 (0.9-3.2); Lymphocytes Percent Auto 29.4 % (18.3-44.2); Mean Corpuscular Hemoglobin 28.4 pg (26-34); Mean Corpuscular Volume 88.8 fl (80-100); Mean Platelet Volume 10.7 fl (7.4-10.4); Monocytes Absolute Auto 0.5 K/mm3 (0.1-0.6); Monocytes Percent Auto 7.5 % (2.6-8.5); Neutrophils Absolute Auto 3.6 K/mm3 (1.3-6.7); Neutrophils Percent Auto 56.4 % (45.5-73.1); Platelet Count Result 276 k/mm3 (150-375); Red Blood Count 4.29 M/mm3 (4.2-5.4); Red Cell Distribution Width 13.1 % (11.5-14.5); White Blood Count 6.3 K/mm3 (4.5-10.0)
[2023-07-03 17:13] LABS: Alanine Aminotransferase 17 U/L (6-35); Albumin Level 4.6 g/dL (3.5-5.1); Alkaline Phosphatase 63 U/L (38-126); Anion Gap 5 mmol/L (8-16); Aspartate Amino Transferase 34 U/L (14-36); Bilirubin,Total 0.4 mg/dL (0.2-1.3); Blood Urea Nitrogen 20 mg/dL (7-17); Calcium 9.1 mg/dL (8.4-10.2); Carbon Dioxide 32 mmol/L (22-30); Chloride 103 mmol/L (98-107); Cholesterol 170 mg/dL (0-200); Estimated Glomerular Filt Rate > 60; Glucose 84 mg/dL (65-110); HDL Direct 102 mg/dL; Potassium 3.7 mmol/L (3.4-5.0); Sodium 140 mmol/L (137-145); Triglycerides 82 mg/dL (<150)
[2023-07-03 17:26] LABS: LDL Cholesterol Direct 53 mg/dL
[2023-07-03 19:10] LABS: Free T4 Free Thyroxine 1.25 ng/mL (0.78-2.19); Vitamin D 25 Hydroxy 36.7 ng/mL
[2023-07-03 21:50] LABS: Hemoglobin A1C 5.3 % (<5.7)
== END 2023-07-03 15:24 | disposition home or self-care (01) ==
LOC: ANHLAB 15:25
PROVIDERS: PCP Internal Medicine; Visit Provider Internal Medicine
DX: I49.8 Other specified cardiac arrhythmias (principal); E78.5 Hyperlipidemia, unspecified; E55.9 Vitamin D deficiency, unspecified; Z79.899 Other long term (current) drug therapy; Z83.3 Family history of diabetes mellitus
CPT/HCPCS: 36415; 80053; 80061; 82306; 83036; 84439; 84443; 85025

== ENCOUNTER 2023-10-12 14:19 | Outpatient (CLI) | payer OTHER, SELFPAY ==
--- NOTE | ~2023-10-12 | MM_ITS ---
EXAMINATION: MM scrn herlinda implant BI w nakul HISTORY: Screening mammogram TECHNIQUE: Craniocaudal and mediolateral oblique 3-D tomosynthesis images with implant displacement a nd synthetic 2-D images were generated. Craniocaudal and mediolateral oblique views of the breasts wi thout implant displacement were obtained using full field digital mammography. CAD analysis was submi tted and interpreted. COMPARISON: 01/19/2022, 09/23/2020, 04/10/2019 BREAST PARENCHYMAL COMPOSITION: The breasts are heterogeneously dense, which may obscure small masses . FINDINGS: There is no evidence of suspicious mass, calcification, or architectural distortion to sugg est malignancy in either breast. There has been no suspicious interval change. IMPRESSION: 1. No mammographic evidence of malignancy. 2. Recommend routine screening mammography in one year. BI-RADS Category 1: Negative Reviewed, dictated and finalized at location A. 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
== END 2023-10-12 14:20 | disposition home or self-care (01) ==
PROVIDERS: PCP Internal Medicine; Visit Provider Obstetrics & Gynecology
DX: Z12.31 Encounter for screening mammogram for malignant neoplasm of breast (principal)
CPT/HCPCS: 77063; 77067

== ENCOUNTER 2024-02-07 06:57 | Outpatient (CLI) | payer OTHER, SELFPAY ==
[2024-02-07 07:46] LABS: Basophils Absolute Auto 0.1 K/mm3 (0.0-0.1); Basophils Percent Auto 1.5 % (0.2-1.2); Eosinophils Absolute Auto 0.2 K/mm3 (0-0.3); Eosinophils Percent Auto 5.1 % (0-4.4); Hematocrit 40.7 % (37.0-47.0); Hemoglobin 13.5 g/dL (12.0-15.0); Immature Granulocyte Absolute 0.01 K/mm3 (0.00-0.031); Immature Granulocyte Percent A 0.2 % (0-0.5); Lymphocytes Absolute Auto 1.57 K/mm3 (0.9-3.2); Lymphocytes Percent Auto 33.6 % (18.3-44.2); Mean Corpuscular HGB Conc 33.2 g/dl (32-36); Mean Corpuscular Volume 84.4 fl (80-100); Mean Platelet Volume 10.3 fl (7.4-10.4); Monocytes Absolute Auto 0.4 K/mm3 (0.1-0.6); Monocytes Percent Auto 8.8 % (2.6-8.5); Neutrophils Absolute Auto 2.4 K/mm3 (1.3-6.7); Neutrophils Percent Auto 50.8 % (45.5-73.1); Platelet Count Result 327 k/mm3 (150-375); Red Blood Count 4.82 M/mm3 (4.2-5.4); Red Cell Distribution Width 13.2 % (11.5-14.5); White Blood Count 4.7 K/mm3 (4.5-10.0)
[2024-02-07 07:59] LABS: Alanine Aminotransferase 17 U/L (6-35); Albumin Level 4.9 g/dL (3.5-5.1); Alkaline Phosphatase 57 U/L (38-126); Anion Gap 9 mmol/L (4-12); Aspartate Amino Transferase 34 U/L (14-36); Bilirubin,Total 0.6 mg/dL (0.2-1.3); Blood Urea Nitrogen 14 mg/dL (7-17); Calcium 9.6 mg/dL (8.4-10.2); Carbon Dioxide 29 mmol/L (22-30); Chloride 101 mmol/L (98-107); Cholesterol 171 mg/dL (0-200); Estimated Glomerular Filt Rate > 60; Glucose 86 mg/dL (65-110); HDL Direct 89 mg/dL; Potassium 4.2 mmol/L (3.4-5.0); Sodium 139 mmol/L (137-145); Triglycerides 75 mg/dL (<150)
[2024-02-07 08:10] LABS: LDL Cholesterol Direct 57 mg/dL
[2024-02-07 08:20] LABS: Free T4 Free Thyroxine 1.19 ng/mL (0.78-2.19); Vitamin D 25 Hydroxy 45.6 ng/mL
[2024-02-07 09:30] LABS: Hemoglobin A1C 5.4 % (<5.7)
== END 2024-02-07 06:58 | disposition home or self-care (01) ==
PROVIDERS: PCP Internal Medicine; Visit Provider Internal Medicine
DX: R73.03 Prediabetes (principal); Z79.899 Other long term (current) drug therapy; E78.5 Hyperlipidemia, unspecified
CPT/HCPCS: 36415; 80053; 80061; 82306; 83036; 84439; 84443; 85025

== ENCOUNTER 2024-06-04 14:38 | Outpatient (NON) | payer OTHER, SELFPAY ==
[2024-06-04 09:41] LABS: IFOB Positive Control Positive; Immunochemical Fecal Occult Bl Positive (N)
[2024-06-04 11:32] LABS: Toxigenic C. Diff NEGATIVE (NEGATIVE)
[2024-06-09 20:39] LABS: Fecal Fat, Ql Normal (Normal)
[2024-06-11 12:28] LABS: Trichrome Ova and Parasites STATUS: FINAL
== END 2024-06-04 14:39 | disposition home or self-care (01) ==
PROVIDERS: PCP Internal Medicine; Visit Provider Internal Medicine
DX: R19.7 Diarrhea, unspecified (principal)
CPT/HCPCS: 82274; 82705; 87045; 87177; 87209; 87427; 87449; 87493; 89055

== ENCOUNTER 2024-06-14 10:15 | Outpatient (CLI) | payer OTHER, SELFPAY ==
[2024-06-14 11:02] LABS: Basophils Absolute Auto 0.1 K/mm3 (0.0-0.1); Eosinophils Absolute Auto 0.2 K/mm3 (0-0.3); Eosinophils Percent Auto 3.4 % (0-4.4); Hematocrit 41.6 % (37.0-47.0); Hemoglobin 13.4 g/dL (12.0-15.0); Immature Granulocyte Absolute 0.01 K/mm3 (0.00-0.031); Immature Granulocyte Percent A 0.2 % (0-0.5); Lymphocytes Absolute Auto 1.82 K/mm3 (0.9-3.2); Lymphocytes Percent Auto 31.1 % (18.3-44.2); Mean Corpuscular HGB Conc 32.2 g/dl (32-36); Mean Corpuscular Hemoglobin 28.1 pg (26-34); Mean Corpuscular Volume 87.2 fl (80-100); Mean Platelet Volume 10.4 fl (7.4-10.4); Monocytes Absolute Auto 0.6 K/mm3 (0.1-0.6); Monocytes Percent Auto 9.6 % (2.6-8.5); Neutrophils Absolute Auto 3.2 K/mm3 (1.3-6.7); Neutrophils Percent Auto 54.7 % (45.5-73.1); Platelet Count Result 359 k/mm3 (150-375); Red Blood Count 4.77 M/mm3 (4.2-5.4); Red Cell Distribution Width 12.8 % (11.5-14.5); White Blood Count 5.9 K/mm3 (4.5-10.0)
[2024-06-14 11:16] LABS: Hemoglobin A1C 5.8 % (<5.7)
[2024-06-14 11:18] LABS: Alanine Aminotransferase 33 U/L (6-35); Alkaline Phosphatase 52 U/L (38-126); Amylase 104 U/L (30-110); Anion Gap 7 mmol/L (4-12); Aspartate Amino Transferase 44 U/L (14-36); Bilirubin,Total 0.6 mg/dL (0.2-1.3); Blood Urea Nitrogen 16 mg/dL (7-17); CRP < 0.5 mg/dL (<1.0); Calcium 9.8 mg/dL (8.4-10.2); Carbon Dioxide 33 mmol/L (22-30); Chloride 100 mmol/L (98-107); Cholesterol 180 mg/dL (0-200); Estimated Glomerular Filt Rate > 60; Glucose 82 mg/dL (65-110); HDL Direct 76 mg/dL; Lipase 164 U/L (23-300); Potassium 3.8 mmol/L (3.4-5.0); Sodium 140 mmol/L (137-145); Triglycerides 108 mg/dL (<150)
[2024-06-14 11:27] LABS: LDL Cholesterol Direct 66 mg/dL
[2024-06-14 12:01] LABS: Erythrocyte Sedimentation Rate 12 mm/hr (0-20)
[2024-06-20 19:53] LABS: Calprotectin, Stool 651 mcg/g
== END 2024-06-14 10:16 | disposition home or self-care (01) ==
LOC: ANHLAB 10:18
PROVIDERS: PCP Internal Medicine; Referring Provider Internal Medicine; Visit Provider Nurse Practitioner Family
DX: Z01.812 Encounter for preprocedural laboratory examination (principal); R10.9 Unspecified abdominal pain; R14.0 Abdominal distension (gaseous); R19.7 Diarrhea, unspecified; E78.49 Other hyperlipidemia; Z83.3 Family history of diabetes mellitus; Z82.49 Family history of ischemic heart disease and other diseases of the circulatory system; Z79.899 Other long term (current) drug therapy
CPT/HCPCS: 36415; 80053; 80061; 82150; 82653; 83036; 83690; 83993; 85025; 85652; 86140

== ENCOUNTER 2024-07-12 05:59 | Day surgery (SDC) | payer OTHER, SELFPAY ==
[2024-07-03 14:16] VITALS: BMI 24.3
--- NOTE | 2024-07-09 09:58 | PC.NURSE ---
Spoke with WILLIAM regarding medication XARELTO. Pt. verbalizes understanding that the last dose of XARELTO is to be taken on 07/08/2024 and the Endoscopist will instruct them when to restart after the procedure.
--- NOTE | 2024-07-12 11:16 | P.HP_ITS ---
H&P: [facility] History of Present Illness Date/Time: 07/12/24 11:16 Chief Complaint: Diarrhea, elevated stool calprotectin Narrative: the patient started 1 month ago with acute diarrhea that gradually resolved although not to normality. She was also complaining of crampy abdominal pain relieved with defecation. More importantly, her most recent stool sample was positive for occult blood and a calprotectin level of 651. here for EGD and colonoscopy. 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 Paroxysmal A-fib Pre-operative clearance RUQ abdominal pain Screening mammogram, encounter for URI, acute Vitamin D deficiency Surgical History Surgical History History of breast augmentation Social History Social History Smoking status: Never smoker Second hand tobacco smoke exposure: No Alcohol intake: current Drinks per week: 3 Alcohol use details: DRINKS Substance use: never Substance use type: does not use Do You Feel Safe in your Home?: Yes Lack of Transportation: No Lack of Food: Never True Current Housing: I Have Housing Concerned About Future Housing: No Difficulty Paying Gas/Electric Bills: No Difficulty Paying for Meds: No Currently Unemployed: No Living arrangements: with family Occupation/Education: occupation Gender identity (if verbalized by the patient): Female Spiritual care concerns: No Meds Home Medications and Allergies Home Medications Medication Instructions Recorded Confirmed Type cholecalciferol (vitamin D3) 50 50 mcg PO DAILY 08/22/23 07/03/24 History mcg (2,000 unit) capsule Xarelto 20 mg tablet (rivaroxaban) See Rx Instructions .Route 03/06/24 07/03/24 Rx .COMPLEX #90 tabs Nexlizet 180 mg-10 mg tablet 1 tablet PO DAILY #90 tabs 04/02/24 07/03/24 Rx (bempedoic acid-ezetimibe) hydroxyzine HCl 25 mg tablet See Rx Instructions PO .at hs PRN 06/06/24 07/03/24 Rx sleep #90 tabs clonazepam 1 mg tablet 1 mg PO TID PRN anxiety #270 tabs 07/10/24 Rx Allergies Allergy/AdvReac Type Severity Reaction Status Date / Time No Known Allergies Allergy Verified 07/03/24 14:18 Exam Const: General: cooperative and healthy appearing Resp: Effort & Inspection: normal respiratory effort and able to speak in complete sentences Auscultation: clear to auscultation bilaterally Cardio: Rate: regular rate Rhythm: regular rhythm GI: Inspection: normal to inspection GI Palp: No No hepatosplenomegaly present Auscultation: normal bowel sounds Rectal Exam: deferred Skin: General skin exam: normal color Psych: Appearance: grossly normal Mental Status: mental status grossly normal Assessment and Plan Assessment and plan (1) Elevated fecal calprotectin: Code(s): R19.5 - Other fecal abnormalities Status: Acute Assessment and Plan: 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 Will perform colonoscopy and the EGD will be for screening purposes. (2) Diarrhea: Qualifiers: Diarrhea type: presumed infectious Qualified Code(s): R19.7 - Diarrhea, unspecified Code(s): R19.7 - Diarrhea, unspecified Status: Acute
[2024-07-12 11:44] VITALS: BP 148/76; PULSE 59; RESP 18; TEMP 36.1; O2SAT 100; BMI 25.1
[2024-07-12] MEDS: LACTATED RINGERS 1,000 ML 150 ML IV CONT (11:48)
--- NOTE | 2024-07-12 11:58 | P.PNAN_ITS ---
Anes - Initial Pre Proc Eval Procedure: Operation Date: 07/12/24 13:00 Proposed Procedures p Esophagogastroduodenoscopy & Colonoscopy - Tye Garay MD Date/Time: 07/12/24 11:58 Surgeon: Tye Garay MD Pre Op Diagnosis: diarrhea, fecal abnormalities Patient Data Age: 54 Gender: F Height: 1.73 m Weight: 74.9 kg Last Vital Signs Temp 97 F L 07/12/24 11:44 Pulse 59 L 07/12/24 11:44 Resp 18 07/12/24 11:44 BP 148/76 H 07/12/24 11:44 Pulse Ox 100 07/12/24 11:44 O2 Del Method Room Air 07/12/24 11:44 Allergies Allergy/AdvReac Type Severity Reaction Status Date / Time No Known Allergies Allergy Verified 07/12/24 11:39 Home Medications Medication Instructions Recorded Confirmed Type cholecalciferol (vitamin D3) 50 50 mcg PO DAILY 08/22/23 07/12/24 History mcg (2,000 unit) capsule Xarelto 20 mg tablet (rivaroxaban) See Rx Instructions .Route 03/06/24 07/12/24 Rx .COMPLEX #90 tabs Nexlizet 180 mg-10 mg tablet 1 tablet PO DAILY #90 tabs 04/02/24 07/12/24 Rx (bempedoic acid-ezetimibe) hydroxyzine HCl 25 mg tablet See Rx Instructions PO .at hs PRN 06/06/24 07/12/24 Rx sleep #90 tabs clonazepam 1 mg tablet 1 mg PO TID PRN anxiety #270 tabs 07/10/24 07/12/24 Rx Patient hx anesthesia problems: none Family hx anesthesia problems: none Results Review: All pre-operative results and documents have been reviewed as part of the pre- operative evaluation. 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 Paroxysmal A-fib Pre-operative clearance RUQ abdominal pain Screening mammogram, encounter for URI, acute Vitamin D deficiency Surgical History Surgical History History of breast augmentation Social History Social History Smoking status: Never smoker Second hand tobacco smoke exposure: No Alcohol intake: current Drinks per week: 3 Alcohol use details: DRINKS Substance use: never Substance use type: does not use Do You Feel Safe in your Home?: Yes Lack of Transportation: No Lack of Food: Never True Current Housing: I Have Housing Concerned About Future Housing: No Difficulty Paying Gas/Electric Bills: No Difficulty Paying for Meds: No Currently Unemployed: No Living arrangements: with family Occupation/Education: occupation Gender identity (if verbalized by the patient): Female Spiritual care concerns: No Anes - Eval Final PreProcedure Day of Procedure 07/12/24 11:58 Patient weight: normal Heart: regular rate and rhythm Lungs: clear to auscultation Airway: Mallampati scale class 1 Neurological: alert and oriented Last oral intake: >/= 8 hours ASA classification: II Emergent: no Anesthetic plan: proceed Anesthesia type and monitoring: general GIVS and standard monitoring Results Review: All pre-operative results and documents have been reviewed as part of the pre- operative evaluation. Healthy, exercises daily, Pt w pAfib, only happens approx 2 x yearly, cardiac testing nml. Pt is on xarelto, held for this procedure. Informed Consent: The patient's anesthetic plan and its attendant risks and benefits were discussed with the patient/family/POA. Questions were solicited and answers provided to the satisfaction of the patient/family/POA.
[2024-07-12] MEDS: SIMETHICONE ORAL SUSPENSION 20 MG/0.3 ML 30 ML BOTTLE 0.6 ML IRRIGATION (12:12)
--- NOTE | 2024-07-12 12:21 | SUR.OPER ---
EGD end time: 1215, Colonoscopy start time: 1221
[2024-07-12 12:40] VITALS: BP 101/68; PULSE 65; RESP 15; O2SAT 100
[2024-07-12 12:50] VITALS: BP 104/65; PULSE 67; RESP 16; O2SAT 100
[2024-07-12 13:00] VITALS: BP 118/76; PULSE 59; RESP 14; O2SAT 100
== END 2024-07-12 13:43 | disposition home or self-care (01) ==
PROVIDERS: PCP Internal Medicine; Referring Provider Nurse Practitioner Family; Visit Provider Internal Medicine Gastroenterology
PROC: 0DJ08ZZ Inspection of Upper Intestinal Tract, Via Natural or Artificial Opening Endoscopic (ICD-10-PCS; CPT 43235; principal; 2024-07-12 13:00)
DX: K52.832 Lymphocytic colitis (principal); K29.30 Chronic superficial gastritis without bleeding; E78.5 Hyperlipidemia, unspecified; E55.9 Vitamin D deficiency, unspecified; G47.00 Insomnia, unspecified; I48.0 Paroxysmal atrial fibrillation; L57.0 Actinic keratosis; Z98.890 Other specified postprocedural states; Z79.899 Other long term (current) drug therapy
CPT/HCPCS: 43239; 45380; 88305; J2003; J2704; J7120

== ENCOUNTER 2024-11-05 14:19 | Outpatient (CLI) | payer OTHER, SELFPAY ==
--- NOTE | ~2024-11-05 | MM_ITS ---
EXAMINATION: MM scrn herlinda implant BI w nakul HISTORY: Screening mammogram TECHNIQUE: Craniocaudal and mediolateral oblique 3-D tomosynthesis images with implant displacement a nd synthetic 2-D images were generated. Craniocaudal and mediolateral oblique views of the breasts wi thout implant displacement were obtained using full field digital mammography. CAD analysis was submi tted and interpreted. COMPARISON: 10/12/2023, 01/19/2022, 09/23/2020 BREAST PARENCHYMAL COMPOSITION: The breasts are heterogeneously dense, which may obscure small masses . FINDINGS: There is no evidence of suspicious mass, calcification, or architectural distortion to sugg est malignancy in either breast. There has been no suspicious interval change. IMPRESSION: No mammographic evidence of malignancy. Recommend routine screening mammography in one year. BI-RADS Category 1: Negative Reviewed, dictated and finalized at [facility].
--- OUTSIDE RECORDS SUMMARY | 2024-11-05 16:15 | XMS_ITS | Clinical Summary ---
Author Organization [facility] [place] [address] [place] [address] Care Team Providers Care Dry Janitor Name Role Phone Chandra Meyers MD Primary Care Provider [phone] Allergies No known active allergies Medications clonazePAM (KlonoPIN) 1 mg tablet 0 09/23/2021 Active bempedoic acid-ezetimibe (Nexlizet) 180-10 mg tablet Take by mouth daily Active rivaroxaban (XARELTO) 20 mg tablet Take 1 tablet (20 mg total) by mouth Active Active Problems Problem Noted Date Diagnosed Date Obstructive sleep apnea 01/13/2022 Family history of premature CAD 11/29/2021 Hyperlipidemia LDL goal <70 11/29/2021 Pre-diabetes 11/29/2021 Palpitations 11/29/2021 PAF (paroxysmal atrial fibrillation) 11/29/2021 Encounters Date Type Department Care Team Description 09/04/2024 1:45 PM FROTHING MACHINE OPERATOR Office Visit [facility] Cardiology [address] [place] [address] Fuentes Bridges MD PAF (paroxysmal atrial fibrillation) (HCC) (Primary Dx); Hyperlipidemia LDL goal <70; Palpitations; Obstructive sleep apnea from Last 3 Months Medical History Medical History Date Comments Arrhythmia Family History Medical History Relation Name Comments sepsis Mother Relation Name Status Comments Brother Alive Father Alive Mother (Age 59) Social History Tobacco Use Types Packs/Day Years Used Date Smoking Tobacco: Never Smokeless Tobacco: Never AUDIT-C Answer Date Recorded Q1: How often do you have a drink containing alc ohol? 2-3 times a week 11/29/2021 Q2: How many drinks containi ng alcohol do you have on a typical day when you are drinking? 1 or 2 11/29/2021 Q3: How often do you have si x or more drinks on one occasion? Never 11/29/2021 Comments Unknown Sex and Gender Information Value Date Recorded Sex Assigned at Not on file Legal Sex Female 7:26 AM FROTHING MACHINE OPERATOR Gender Identity Not on file Sexual Orientation Not on file Obstetrics History Last Filed Vital Signs Vital Sign Reading Time Taken Comments Blood Pressure 102/68 09/04/2024 1:49 PM FROTHING MACHINE OPERATOR Pulse 71 09/04/2024 1:49 PM FROTHING MACHINE OPERATOR Temperature - - Respiratory Rate - - Oxygen Saturation 97% 09/04/2024 1:49 PM FROTHING MACHINE OPERATOR Inhaled Oxygen Concentration - - Weight 75.8 kg (167 lb) 09/04/2024 1:49 PM FROTHING MACHINE OPERATOR Height 175.3 cm (5' 9 ) 09/04/2024 1:49 PM FROTHING MACHINE OPERATOR Body Mass Index 24.66 09/04/2024 1:49 PM FROTHING MACHINE OPERATOR Plan of Treatment Health Maintenance Due Date Last Done Comments Breast Cancer Screening-Mammogram 1970 Cervical Cancer Screening 1970 Colon Cancer Screening-Colonoscopy 1970 Depression Screening 1970 Hepatitis C Screening 1970 DTaP/Tdap/Td Vaccine (1 - Tdap) 1981 Hepatitis B Screening 1988 Regular Well Visit/Exam 18-64 1988 Zoster Vaccine (1 of 2) 2020 Covid-19 Vaccine (4 - 2023-2 5 season) 2024 06/04/2021, 09/06/2020, 08/16/2020 Influenza Vaccine (#1) 2024 Pneumococcal vaccine <65 Aged Out No longer eligible based on patient's age to complete this topic Insurance [facility] CHOICE PLUS [address] Care Teams Dry Janitor Relationship Specialty Start Date End Date Chandra Meyers MD [address] INTERNAL MEDICINE [place], [place] [id number] PCP - General Internal Medicine 07/12/19
--- OUTSIDE RECORDS SUMMARY | 2024-11-05 16:15 | XMS_ITS | Referral Summary ---
Author Organization [facility] [place] [address] [place] [address] [address] [place] [address] Care Team Providers Care Cash Management Officer Name Role Phone Chandra Meyers MD Primary Care Provider [phone] Encounters Date Type Department Care Team Description 09/04/2024 1:45 PM FINISHER FINE DIAMOND DIES Office Visit [facility] Medical [facility] Cardiology [address] [facility] [address] [place] [address] Fuentes Bridges MD PAF (paroxysmal atrial fibrillation) (HCC) (Primary Dx); Hyperlipidemia LDL goal <70; Palpitations; Obstructive sleep apnea from Last 3 Months Allergies No known active allergies Medications clonazePAM [...] Palpitations 11/29/2021 PAF (paroxysmal atrial fibrillation) 11/29/2021 Social History Tobacco Use Types Packs/Day Years [...] on file Legal Sex Female 7:26 AM FINISHER FINE DIAMOND DIES Gender Identity Not on file Sexual Orientation Not on file Last Filed Vital Signs Vital Sign Reading Time Taken Comments Blood Pressure 102/68 09/04/2024 1:49 PM FINISHER FINE DIAMOND DIES Pulse 71 09/04/2024 1:49 PM FINISHER FINE DIAMOND DIES Temperature - - Respiratory Rate - - Oxygen Saturation 97% 09/04/2024 1:49 PM FINISHER FINE DIAMOND DIES Inhaled Oxygen Concentration - - Weight 75.8 kg (167 lb) 09/04/2024 1:49 PM FINISHER FINE DIAMOND DIES Height 175.3 cm (5' 9 ) 09/04/2024 1:49 PM FINISHER FINE DIAMOND DIES Body Mass Index 24.66 09/04/2024 1:49 PM FINISHER FINE DIAMOND DIES Plan of Treatment Not on file Insurance [facility] CHOICE PLUS [facility] Care Teams Cash Management Officer Relationship Specialty Start Date End Date Chandra Meyers MD [address] [place] [address] PCP - General Internal Medicine 07/12/19
== END 2024-11-05 14:20 | disposition home or self-care (01) ==
PROVIDERS: PCP Internal Medicine; Visit Provider Obstetrics & Gynecology
DX: Z12.31 Encounter for screening mammogram for malignant neoplasm of breast (principal)
CPT/HCPCS: 77063; 77067

== ENCOUNTER 2024-11-22 12:45 | Outpatient (CLI) | payer OTHER, SELFPAY ==
--- OUTSIDE RECORDS SUMMARY | 2024-11-22 12:59 | XMS_ITS | Referral Summary ---
Author Organization [facility] [place] [address] [place] [address] [address] [place] [address] Care Team Providers Care Occupational Therapy Director Name Role Phone Chandra Meyers MD Primary Care Provider [phone] Encounters Date Type Department Care Team Description 09/04/2024 1:45 PM PIZZA DRIVER Office Visit [facility] Cardiology [address] [place] [address] [address] [place] [address] Fuentes Bridges MD PAF (paroxysmal [...] on file Legal Sex Female 7:26 AM PIZZA DRIVER Gender Identity Not on file Sexual Orientation Not on file Last Filed Vital Signs Vital Sign Reading Time Taken Comments Blood Pressure 102/68 09/04/2024 1:49 PM PIZZA DRIVER Pulse 71 09/04/2024 1:49 PM PIZZA DRIVER Temperature - - Respiratory Rate - - Oxygen Saturation 97% 09/04/2024 1:49 PM PIZZA DRIVER Inhaled Oxygen Concentration - - Weight 75.8 kg (167 lb) 09/04/2024 1:49 PM PIZZA DRIVER Height 175.3 cm (5' 9 ) 09/04/2024 1:49 PM PIZZA DRIVER Body Mass Index 24.66 09/04/2024 1:49 PM PIZZA DRIVER Plan of Treatment Not on file Insurance [facility] PL[facility] Address: [facility] [address] [place] [address] [facility] H[facility]/PPO Address: [facility] [address] [place] [address] Care Teams Occupational Therapy Director Relationship Specialty Start Date End Date Chandra Meyers MD [address] [place] [address] PCP - General Internal Medicine 07/12/19
--- OUTSIDE RECORDS SUMMARY | 2024-11-22 12:59 | XMS_ITS | Clinical Summary ---
Author Organization [facility] [place] [address] [place] [address] [address] [place] [address] Care Team Providers Care Expanded Function Dental Assistant Name Role Phone Chandra Meyers MD Primary Care Provider [phone] Allergies No known active allergies Medications clonazePAM [...] Department Care Team Description 09/04/2024 1:45 PM STORE WAREHOUSE ASSOCIATE Office Visit [facility] Cardiology [address] [place] [address] Fuentes Bridges MD PAF (paroxysmal [...] on file Legal Sex Female 7:26 AM STORE WAREHOUSE ASSOCIATE Gender Identity Not on file Sexual Orientation Not on file Obstetrics History Last Filed Vital Signs Vital Sign Reading Time Taken Comments Blood Pressure 102/68 09/04/2024 1:49 PM STORE WAREHOUSE ASSOCIATE Pulse 71 09/04/2024 1:49 PM STORE WAREHOUSE ASSOCIATE Temperature - - Respiratory Rate - - Oxygen Saturation 97% 09/04/2024 1:49 PM STORE WAREHOUSE ASSOCIATE Inhaled Oxygen Concentration - - Weight 75.8 kg (167 lb) 09/04/2024 1:49 PM STORE WAREHOUSE ASSOCIATE Height 175.3 cm (5' 9 ) 09/04/2024 1:49 PM STORE WAREHOUSE ASSOCIATE Body Mass Index 24.66 09/04/2024 1:49 PM STORE WAREHOUSE ASSOCIATE Plan of Treatment Health Maintenance Due Date [...] patient's age to complete this topic Insurance [facility] CHOICE PLUS [facility] H[facility]/PPO Address: [address] [facility] H[facility]/PPO Address: [address] [address] [place] [address] Care Teams Expanded Function Dental Assistant Relationship Specialty Start Date End Date Chandra Meyers MD [address] [place], [place] [id number] PCP - General Internal Medicine 07/12/19
[2024-11-22 13:13] LABS: Basophils Absolute Auto 0.1 K/mm3 (0.0-0.1); Basophils Percent Auto 1.2 % (0.2-1.2); Eosinophils Absolute Auto 0.3 K/mm3 (0-0.3); Eosinophils Percent Auto 4.3 % (0-4.4); Hematocrit 40.5 % (37.0-47.0); Hemoglobin 13.1 g/dL (12.0-15.0); Immature Granulocyte Absolute 0.01 K/mm3 (0.00-0.031); Immature Granulocyte Percent A 0.2 % (0-0.5); Lymphocytes Percent Auto 28.9 % (18.3-44.2); Mean Corpuscular HGB Conc 32.3 g/dl (32-36); Mean Corpuscular Volume 86.5 fl (80-100); Mean Platelet Volume 10.1 fl (7.4-10.4); Monocytes Absolute Auto 0.4 K/mm3 (0.1-0.6); Monocytes Percent Auto 7.1 % (2.6-8.5); Neutrophils Absolute Auto 3.4 K/mm3 (1.3-6.7); Neutrophils Percent Auto 58.3 % (45.5-73.1); Platelet Count Result 303 k/mm3 (150-375); Red Blood Count 4.68 M/mm3 (4.2-5.4); White Blood Count 5.9 K/mm3 (4.5-10.0)
[2024-11-22 13:26] LABS: Alanine Aminotransferase 19 U/L (6-35); Albumin Level 4.8 g/dL (3.5-5.1); Alkaline Phosphatase 53 U/L (38-126); Anion Gap 10 mmol/L (4-12); Aspartate Amino Transferase 35 U/L (14-36); Bilirubin,Total 0.6 mg/dL (0.2-1.3); Blood Urea Nitrogen 28 mg/dL (7-17); Calcium 9.6 mg/dL (8.4-10.2); Carbon Dioxide 30 mmol/L (22-30); Chloride 99 mmol/L (98-107); Cholesterol 175 mg/dL (0-200); Estimated Glomerular Filt Rate 55; Glucose 94 mg/dL (65-110); HDL Direct 92 mg/dL; Potassium 4.4 mmol/L (3.4-5.0); Sodium 139 mmol/L (137-145); Triglycerides 76 mg/dL (<150)
[2024-11-22 13:36] LABS: LDL Cholesterol Direct 51 mg/dL
[2024-11-22 13:53] LABS: Free T4 Free Thyroxine 1.38 ng/dL (0.78-2.19)
[2024-11-22 14:17] LABS: Hemoglobin A1C 5.6 % (<5.7)
[2024-11-25 11:49] LABS: Free T3 3.21 pg/mL (2.71-6.16)
== END 2024-11-22 12:46 | disposition home or self-care (01) ==
LOC: ANHLAB 12:46
PROVIDERS: PCP Internal Medicine; Visit Provider Internal Medicine
DX: E78.49 Other hyperlipidemia (principal); I48.0 Paroxysmal atrial fibrillation; Z79.899 Other long term (current) drug therapy; R79.89 Other specified abnormal findings of blood chemistry
CPT/HCPCS: 36415; 80053; 80061; 83036; 84439; 84443; 84481; 85025

== ENCOUNTER 2025-02-25 08:00 | Outpatient (CLI) | payer OTHER, SELFPAY ==
--- OUTSIDE RECORDS SUMMARY | 2025-02-25 08:03 | XMS_ITS | Clinical Summary ---
Author Organization [facility] [place] [address] [place] [address] Care Team Providers Care Ambulance Assistant Name Role Phone Chandra Meyers MD Primary Care Provider [phone] Allergies No known active allergies Medications clonazePAM [...] Palpitations 11/29/2021 PAF (paroxysmal atrial fibrillation) 11/29/2021 Medical History Medical History Date Comments Arrhythmia [...] on file Legal Sex Female 7:26 AM CLAY MOLDER Gender Identity Not on file Sexual Orientation Not on file Obstetrics History Last Filed Vital Signs Vital Sign Reading Time Taken Comments Blood Pressure 102/68 09/04/2024 1:49 PM CLAY MOLDER Pulse 71 09/04/2024 1:49 PM CLAY MOLDER Temperature - - Respiratory Rate - - Oxygen Saturation 97% 09/04/2024 1:49 PM CLAY MOLDER Inhaled Oxygen Concentration - - Weight 75.8 kg (167 lb) 09/04/2024 1:49 PM CLAY MOLDER Height 175.3 cm (5' 9) 09/04/2024 1:49 PM CLAY MOLDER Body Mass Index 24.66 09/04/2024 1:49 PM CLAY MOLDER Plan of Treatment Health Maintenance Due Date Last Done Comments Breast Cancer Screening-Mammogram 1970 Cervical Cancer Screening 1970 Colon Cancer Screening-Colonoscopy 1970 Depression Screening 1970 Hepatitis C Screening 1970 DTaP/Tdap/Td Vaccine (1 - Tdap) 1981 Hepatitis B Screening 1988 Regular Well Visit/Exam 18-64 1988 Zoster Vaccine (1 of 2) 2020 Covid-19 Vaccine (4 - 2023-2 5 season) 2024 06/04/2021, 09/06/2020, 08/16/2020 Influenza Vaccine (Season Ended) 2025 Pneumococcal vaccine <65 Aged Out No longer eligible based on patient's age to complete [place] [address] [place] [place] [address] [facility] CHOICE PLUS [facility] Care Teams Ambulance Assistant Relationship Specialty Start Date End Date Chandra Meyers MD [address] [facility] [address] INTERNAL MEDICINE [place], [place] [id number] PCP - General Internal Medicine 07/12/19
--- OUTSIDE RECORDS SUMMARY | 2025-02-25 08:03 | XMS_ITS | Referral Summary ---
Author Organization [facility] [place] [address] [place] [address] Care Team Providers Care Barrel Ribs Solderer Name Role Phone Chandra Meyers MD Primary Care Provider [phone] Allergies No known active allergies Medications clonazePAM [...] on file Legal Sex Female 7:26 AM MACHINIST CLASS B Gender Identity Not on file Sexual Orientation Not on file Last Filed Vital Signs Vital Sign Reading Time Taken Comments Blood Pressure 102/68 09/04/2024 1:49 PM MACHINIST CLASS B Pulse 71 09/04/2024 1:49 PM MACHINIST CLASS B Temperature - - Respiratory Rate - - Oxygen Saturation 97% 09/04/2024 1:49 PM MACHINIST CLASS B Inhaled Oxygen Concentration - - Weight 75.8 kg (167 lb) 09/04/2024 1:49 PM MACHINIST CLASS B Height 175.3 cm (5' 9) 09/04/2024 1:49 PM MACHINIST CLASS B Body Mass Index 24.66 09/04/2024 1:49 PM MACHINIST CLASS B Plan of Treatment Not on file Insurance [facility] CHOICE PLUS [facility] H[facility]PPO Address: [address] [address] [place] [address] [facility]/PPO Address: [address] [address] [place] [address] Care Teams Barrel Ribs Solderer Relationship Specialty Start Date End Date Chandra Meyers MD [address] [facility] [address] [place] [address] PCP - General Internal Medicine 07/12/19
--- NOTE | 2025-03-04 15:05 | WPDHOMESLEEP ---
Sleep Study - Home Unattended Date of Study: 02/25/25 Ordering Provider: Chandra Meyers MD Interpreting Provider: Cris Davis MD Home Sleep Study Type: Watch PAT Height: 1.74 m Weight: 68.039 kg Body Mass Index: 22.4 Neck Circumference (inches): 13 [place]: 9 Reason for Sleep Study Hypersomnolence Sleep History Gloria Meyers is a 54-year-old woman who has witnessed snoring, choking and gasping at night and difficulty breathing when she is on her back. She does not have a morning headache. She does awaken with a dry mouth. She does not have nocturnal heartburn. She awakens more than 3 times at night to urinate. She has difficulty returning to sleep when she awakens at night. She wakes up earlier than she wants to and she uses sedatives to help her get to sleep. She is anxious about her sleep. She has daytime fatigue and excessive daytime sleepiness. Her sleep is un refreshing. She has an urge to fall asleep during the day and she has drowsy driving. She does not grind her teeth at night nor does she have restless sensation in her legs or kicking at night. She reports difficulties with insomnia, and her insomnia severity score is 17. She has paroxysmal atrial fibrillation, hyperlipidemia and an immediate family member with obstructive sleep apnea. Her normal bedtime is 9:00 p.m. on work days, falls asleep within 15 minutes, spends 8-1/2 hours in bed but only 5 hours of sleep. On days off bedtime is 10:00 p.m., 15 minutes to fall asleep spending 9 hours in bed and only 6 hours of sleep. She is only slightly more refreshed on weekend days compared to work days. She requires naps in the day. 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 Vitamin D deficiency Hyperlipidemia Back pain Surgical History Surgical History History of breast augmentation Social History Social History Smoking status: Never smoker Second hand tobacco smoke exposure: No Alcohol intake: current Drinks per week: 3 Alcohol use details: DRINKS Substance use: never Substance use type: does not use Do You Feel Safe in your Home?: Yes Lack of Transportation: No Lack of Food: Never True Current Housing: I Have Housing Concerned About Future Housing: No Difficulty Paying Gas/Electric Bills: No Difficulty Paying for Meds: No Currently Unemployed: No Living arrangements: with family Occupation/Education: occupation Gender identity (if verbalized by the patient): Female Spiritual care concerns: No Medications Home Medications ?Medication ?Instructions ?Recorded ?Confirmed ?Type cholecalciferol (vitamin D3) 50 50 mcg PO DAILY 08/22/23 02/18/25 History mcg (2,000 unit) capsule clonazepam 1 mg tablet 1 mg PO TID PRN anxiety #270 tabs 09/02/24 02/18/25 Rx hydroxyzine HCl 25 mg tablet See Rx Instructions PO .at hs PRN 09/02/24 02/18/25 Rx sleep #90 tabs Xarelto 20 mg tablet (rivaroxaban) See Rx Instructions .Route 12/22/24 02/18/25 Rx .COMPLEX #90 tabs ciprofloxacin 0.3 %-dexamethasone 3 drp LEFT EAR Q12H #7.5 mL 02/22/25 Rx 0.1 % ear drops,suspension Nexlizet 180 mg-10 mg tablet 1 tablet PO DAILY #90 tabs 02/24/25 Rx (bempedoic acid-ezetimibe) zolpidem 10 mg tablet (Ambien) 10 mg PO QHS #1 tablet 02/24/25 Rx Sleep Procedure The sleep study was completed using WatchPAT a technically adequate device with seven channels: peripheral arterial tone, actigraphy, body position, snore, respiratory movement, pulse oximetry, sleep staging, and heart rate. Prior to using the device, the patient received verbal and written instructions for its application and was provided with the help desk phone number for additional telephonic instruction with 24-hour availability of qualified personnel to answer questions. Sleep Architecture The total recording time is 8 hours 50 minutes. The total sleep time is 7 hours 51 minutes minutes. Sleep latency is 14 minutes. REM latency is 70 minutes. The patient had 11 episodes of waking. Sleep architecture shows 20% deep sleep, 60% light sleep, and 20% stage REM. The patient spent 327 minutes, 69.4% of total sleep time in the supine position. Respiratory Analysis The overall AHI (pAHI 3%:) is 8.6. The central AHI is 0.3. The AHI was 7.5 in NREM and 13.0 in REM sleep. The AHI was 9.0 in Supine and 7.6 in Non-supine sleep. Percent of Ja Chapman respirations is 0.0. Oximetry Data The oxygen desaturation index (VIGNESH 4%:) is 3.6. The mean saturation is 94%, and the lowest saturation is 83%. Time spent with saturation < 88% is 1.8 minutes. Snoring Profile Snoring average intensity is 41 dB. The patient snored above 45 decibels for 11.9 minutes, 2.5% of sleep time. Cardiac Profile The average pulse rate is 74 beats per minutes. The lowest pulse rate is 54 bpm. The highest pulse rate is 102 bpm. Cardiac rhythm analysis in sleep does not show suspected atrial fibrillation. Assessment and Plan Assessment and Plan (1) Obstructive sleep apnea: Code(s): G47.33 - Obstructive sleep apnea (adult) (pediatric) Status: Acute Assessment and Plan: This home sleep test on 02/25/2025 shows mild obstructive sleep apnea, the apnea-hypopnea index is 8.6 with desaturation to 83% and 1.8 minutes, 0.4% of the night spent below 88%. She also had moderately loud snoring. Her events were worse in the supine position. She has paroxysmal atrial fibrillation and with this cardiac diagnosis she is a candidate for treatment. She did not have significant central apneas or Ja-Chapman respirations. I will recommend a Resmed AirSense 11 AutoPAP 5-15 cm H2O, CPAP mask/filters/tubing and humidifier chamber. This should be used with all episodes of sleep. Compliance should be reviewed within 31-90 days of starting therapy for usage greater than 4 hours per night greater than 70% of the nights. The patient should be asked about symptoms such as excessive daytime sleepiness, quality of sleep, decreased nocturia, increased mental functioning such as memory, mood, and concentration. If she develops palpitations at night or if her download shows that she has central apneas or Ja-Chapman respirations, she should have a CPAP titration in the sleep lab. Data The data obtained during this sleep study is adequate for interpretation. Certification This sleep study has been reviewed by a board certified sleep medicine physician.
[2025-03-05 17:32] VITALS: BMI 22.4
== END 2025-02-26 11:55 | disposition home or self-care (01) ==
LOC: ANHCSM 08:01
PROVIDERS: PCP Internal Medicine; Visit Provider Internal Medicine
DX: G47.33 Obstructive sleep apnea (adult) (pediatric) (principal); G47.10 Hypersomnia, unspecified
CPT/HCPCS: 95800

== ENCOUNTER 2025-04-25 12:30 | Outpatient (CLI) | payer OTHER, SELFPAY ==
--- OUTSIDE RECORDS SUMMARY | 2025-04-25 12:36 | XMS_ITS | Clinical Summary ---
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 Gender Identity Not on file Sexual Orientation Not on file Obstetrics History Last Filed Vital Signs Vital Sign Reading Time Taken Comments Blood Pressure 102/68 09/04/2024 1:49 PM FAMILY SERVICES MANAGER Pulse 71 09/04/2024 1:49 PM FAMILY SERVICES MANAGER Temperature - - Respiratory Rate - - Oxygen Saturation 97% 09/04/2024 1:49 PM FAMILY SERVICES MANAGER Inhaled Oxygen Concentration - - Weight 75.8 kg (167 lb) 09/04/2024 1:49 PM FAMILY SERVICES MANAGER Height 175.3 cm (5' 9) 09/04/2024 1:49 PM FAMILY SERVICES MANAGER Body Mass Index 24.66 09/04/2024 1:49 PM FAMILY SERVICES MANAGER Plan of Treatment Health Maintenance Due Date [...] 2024 06/04/2021, 09/06/2020, 08/16/2020 Influenza Vaccine (#1) 2025 Pneumococcal vaccine <65 Aged Out No longer eligible based on patient's age to complete this topic Procedures Procedure Name Priority Date/Time Associated Diagnosis Comments SLEEP LAB/STUDY - RESULT 02/25/2025 from Last 3 Months Results * SLEEP LAB/STUDY - RESULT (02/25/2025) us Provider Scanning Final Result from Last 3 Months Insurance [facility] CHO[facility] PL[facility] [address] Care Teams Pin Puller Relationship Specialty Start Date End Date Chandra Meyers MD [address] [place]UAN MANUEL [address] [place], [place] [id number] PCP - General Internal Medicine 07/12/19
--- OUTSIDE RECORDS SUMMARY | 2025-04-25 12:36 | XMS_ITS | Encounter Summary ---
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 Gender Identity Not on file Sexual Orientation Not on file documented as of this encounter Plan of Treatment Not on file documented as of this encounter Procedures Procedure Name Priority Date/Time Associated Diagnosis Comments SLEEP LAB/STUDY - RESULT 02/25/2025 documented in this encounter Results * SLEEP LAB/STUDY - RESULT (02/25/2025) us Provider Scanning Final Result documented in this encounter Visit Diagnoses Not on filedocumented in this encounter Care Teams Quality Assurance Group Leader Relationship Specialty Start Date End Date Chandra Meyers MD [address] [facility] [address] [place] [id number] PCP - General Internal Medicine 07/12/19 documented as of this encounter
[2025-04-25 13:11] LABS: Hematocrit 38.1 % (37.0-47.0); Hemoglobin 12.2 g/dL (12.0-15.0); Immature Granulocyte Percent A 0.2 % (0-0.5); Lymphocytes Absolute Auto 1.66 K/mm3 (0.9-3.2); Mean Corpuscular HGB Conc 32.0 g/dl (32-36); Mean Corpuscular Hemoglobin 28.3 pg (26-34); Mean Corpuscular Volume 88.4 fl (80-100); Nucleated Red Blood Cells Absolute Auto 0.000 K/mm3 (0.0-0.012); Nucleated Red Blood Cells Perc 0.0 % (0.0-0.2); Platelet Count Result 274 k/mm3 (150-375); Red Blood Count 4.31 M/mm3 (4.2-5.4); White Blood Count 5.9 K/mm3 (4.5-10.0)
[2025-04-25 13:28] LABS: Hemoglobin A1C 5.3 % (<5.7)
[2025-04-25 13:36] LABS: Alanine Aminotransferase 18 U/L (6-35); Albumin Level 4.5 g/dL (3.5-5.1); Alkaline Phosphatase 66 U/L (38-126); Anion Gap 7 mmol/L (4-12); Aspartate Amino Transferase 35 U/L (14-36); Bilirubin,Total 0.4 mg/dL (0.2-1.3); Blood Urea Nitrogen 17 mg/dL (7-17); Calcium 9.1 mg/dL (8.4-10.2); Carbon Dioxide 28 mmol/L (22-30); Chloride 103 mmol/L (98-107); Cholesterol 189 mg/dL (0-200); Estimated Glomerular Filt Rate > 60; Glucose 83 mg/dL (65-110); HDL Direct 100 mg/dL; Potassium 3.9 mmol/L (3.4-5.0); Sodium 138 mmol/L (137-145); Total Protein 7.3 g/dL (6.3-8.2); Triglycerides 103 mg/dL (<150)
[2025-04-25 13:53] LABS: Free T4 Free Thyroxine 0.97 ng/dL (0.78-2.19)
[2025-04-25 14:11] LABS: Thyroid Stimulating Hormone 1.140 uIU/mL (0.465-4.680)
== END 2025-04-25 12:31 | disposition home or self-care (01) ==
LOC: ANHLAB 12:33
PROVIDERS: PCP Internal Medicine; Visit Provider Internal Medicine
DX: E78.49 Other hyperlipidemia (principal); E55.9 Vitamin D deficiency, unspecified; R79.89 Other specified abnormal findings of blood chemistry; G47.33 Obstructive sleep apnea (adult) (pediatric); R53.83 Other fatigue; Z79.899 Other long term (current) drug therapy
CPT/HCPCS: 36415; 80053; 80061; 82306; 83036; 84439; 84443; 85025